=== PATIENT | male | born 1960 | race American Indian/Alaskan Native ===

== ENCOUNTER 2021-09-16 00:14 | Observation (INO) | payer BC, MEDICARE, OTHER ==
[2021-09-16] MEDS ORDERED: fentaNYL 100 MCG/2 ML INJ IV ONE (00:42)
[2021-09-16] MEDS ORDERED: ASPIRIN 325 MG TAB PO ONE (00:42)
[2021-09-16] MEDS ORDERED: NITROGLYCERIN 2% OINT 1 GM TP ONE (00:42)
[2021-09-16] MEDS ORDERED: ONDANSETRON 4 MG/2 ML INJ IV ONE (00:42)
[2021-09-16] MEDS ORDERED: cloNIDine 0.1 MG TAB PO ONE (00:47)
--- NOTE | 2021-09-16 00:47 | Emergency Department Report ---
HPI - General Chief Complaint: Chest Pain Time Seen by Provider: 09/16/21 00:23 - HPI HPI: Room 24 Patient is a 61-year-old male present with chief complaint of chest pain. Patient states symptoms began this evening with substernal chest pressure felt as though someone sitting on his chest. Patient also complained of bilateral upper extremity numbness with the pain. Patient denies shortness of breath, nausea/vomiting or diaphoresis. Patient denies cough or fever. Patient denies any recent flights or long car trips. Patient currently gives his chest pain score 5/10. Patient states he has had a stress test within the past 5 years but does not recall the results. Patient states he is never had a cardiac catheterization ED Past Medical Hx - Past Medical History Hx Hypertension: Yes Hx CVA: Yes (2003) Hx Diabetes: Yes Hx Renal Disease: Yes - Surgical History Additional Surgical History: Skin graft as a child - Family History Family history: no significant - Social History Smoking Status: Current Every Day Smoker (1/2 pack/day) Substance Use Type: None (Denies illicit drug use) - Medications Home Medications: Home Medications Medication Instructions Recorded Confirmed Last Taken Type HYDROcodone/APAP 10-325 [[place] 1 each PO Q8HR PRN #30 tablet 08/29/13 Unknown Rx 10/325] Insulin NPH Hum/Reg Insulin Hm 20 units SQ QAM 08/29/13 08/29/13 Unknown History [Humulin 70-30 Vial] Insulin NPH Hum/Reg Insulin Hm 20 units SQ QPM 08/29/13 08/29/13 Unknown History [Humulin 70-30 Vial] ED Review of Systems ROS: Stated complaint: CHEST PAIN Other details as noted in HPI Constitutional: denies: diaphoresis, fever Eyes: denies: eye pain ENT: denies: throat pain Respiratory: denies: shortness of breath Cardiovascular: chest pain Endocrine: no symptoms reported Gastrointestinal: denies: nausea, vomiting Genitourinary: denies: dysuria Musculoskeletal: denies: back pain Neurological: denies: headache Physical Exam - Physical Exam Vital Signs: Vital Signs 09/16/21 00:35 Temperature 98.7 F Pulse Rate 92 H Respiratory 16 Rate Blood Pressure 170/100 [Right] O2 Sat by Pulse 95 Oximetry Physical Exam: GENERAL: The patient is well-developed well-nourished male lying on stretcher not appearing to be in acute distress. [] HEENT: Normocephalic. Atraumatic. Extraocular motions are intact. Patient has moist mucous membranes. NECK: Supple. Trachea midline CHEST/LUNGS: Clear to auscultation. There is no respiratory distress noted. HEART/CARDIOVASCULAR: Regular. There is no tachycardia. There is no gallop rub or murmur. ABDOMEN: Abdomen is soft, nontender. Patient has normal bowel sounds. There is no abdominal distention. SKIN: There is no rash. There is no edema. There is no diaphoresis. NEURO: The patient is awake, alert, and oriented. The patient is cooperative. The patient has no focal neurologic deficits. The patient has normal speech. GCS 15 MUSCULOSKELETAL:There is no evidence of acute injury. ED Course Vital Signs 09/16/21 00:35 Temperature 98.7 F Pulse Rate 92 H Respiratory 16 Rate Blood Pressure 170/100 [Right] O2 Sat by Pulse 95 Oximetry ED Medical Decision Making - Lab Data Result diagrams: 09/16/21 01:17 09/16/21 01:17 Laboratory Tests 09/16/21 09/16/21 09/16/21 01:17 01:17 01:17 WBC 10.0 RBC 4.32 Hgb 12.8 Hct 37.3 MCV 86 MCH 30 MCHC 34 RDW 14.1 Plt Count 224 Lymph % (Auto) 9.1 L [place] % (Auto) 6.5 Eos % (Auto) 3.6 Baso % (Auto) 0.8 Lymph # (Auto) 0.9 L [place] # (Auto) 0.7 Eos # (Auto) 0.4 Baso # (Auto) 0.1 Seg Neutrophils % 80.0 H Seg Neutrophils # 8.0 H PT 13.9 INR 0.94 VBG pH Sodium 138 Potassium 3.4 L Chloride 97.8 L Carbon Dioxide 29 Anion Gap 15 BUN 19 Creatinine 1.3 Estimated GFR > 60 BUN/Creatinine Ratio 15 Glucose 305 H Calcium 9.1 Total Creatine Kinase 408 H CK-MB (CK-2) 5.2 H CK-MB (CK-2) Rel Index 1.2 Troponin T < 0.010 09/16/21 01:17 WBC RBC Hgb Hct MCV MCH MCHC RDW Plt Count Lymph % (Auto) [place] % (Auto) Eos % (Auto) Baso % (Auto) Lymph # (Auto) [place] # (Auto) Eos # (Auto) Baso # (Auto) Seg Neutrophils % Seg Neutrophils # PT INR VBG pH 7.405 Sodium Potassium Chloride Carbon Dioxide Anion Gap BUN Creatinine Estimated GFR BUN/Creatinine Ratio Glucose Calcium Total Creatine Kinase CK-MB (CK-2) CK-MB (CK-2) Rel Index Troponin T - EKG Data -: EKG Interpreted by Me EKG shows normal: sinus rhythm Rate: normal - EKG Data When compared to previous EKG there are: previous EKG unavailable Interpretation: nonspecific ST-T wave fredy - Radiology Data Radiology results: report reviewed (Chest x-ray), image reviewed (Chest x-ray) interpreted by me: Chest [id number]. No pneumothorax. No definite focal infiltrate [facility] [address] [place] [address] XRay Report Signed Patient: KATHLEEN LATHAM MR#: [id number] : 1960 Acct:[id number] Age/Sex: 61 / M ADM Date: 09/16/21 Loc: ED Attending Dr: Ordering Physician: JALEN PORTILLO MD Date of Service: 09/16/21 Procedure(s): XR chest 1V ap Accession Number(s): [id number] cc: JALEN PORTILLO MD Fluoro Time In Minutes: XR chest 1V ap INDICATION / CLINICAL INFORMATION: chest pain. COMPARISON: None available. FINDINGS: SUPPORT DEVICES: None. HEART /PULMONARY VASCULATURE: No significant abnormality. LUNGS / PLEURA: Lung volumes are diminished. There is bronchovascular crowding with streaky bibasilar pulmonary opacities. No sizable pleural effusion. No pneumothorax. ADDITIONAL FINDINGS: No significant additional findings. IMPRESSION: Streaky bibasilar pulmonary opacities, favored to reflect atelectasis in the setting of low lung volumes. Signer Name: Keanu Valerio MD Signed: 09/16/2021 1:28 AM Workstation Name: [id number] Transcribed By: MIGUEL ANGEL Dictated By: KEANU VALERIO MD Electronically Authenticated By: KEANU VALERIO MD Signed Date/Time: 09/16/21127 DD/ 5 TD/TT: - Differential Diagnosis ACS, pericarditis, GERD Critical care attestation.: If time is entered above; I have spent that time in minutes in the direct care of this critically ill patient, excluding procedure time. ED Disposition Clinical Impression: Chest pain Disposition: 09 ADMITTED INPATIENT Is pt being admited?: Yes Does the pt Need Aspirin: Yes Condition: Fair Time of Disposition: 02:51 (Care transferred to hospitalist (Dr. Mccray)) Heart Score - HEART Score History: Moderately suspicious EKG: Non-specific Age: 45-65 Risk factors: > 3 risk factors or hx of atherosclerotic disease Troponin: < normal limit HEART Score: 5 - EKG Read Time Time EKG Completed: 00:32 (3) EKG Read Time: 00:35
[2021-09-16 01:30] LABS: Basophils # (Auto) 0.1 K/mm3 (0.0-0.1); Basophils % (Auto) 0.8 % (0.0-1.8); Eosinophils # (Auto) 0.4 K/mm3 (0.0-0.4); Eosinophils % (Auto) 3.6 % (0.0-4.3); Hematocrit 37.3 % (35.5-45.6); Hemoglobin 12.8 gm/dl (11.8-15.2); Lymphocytes # (Auto) 0.9 K/mm3 (1.2-5.4); Lymphocytes % (Auto) 9.1 % (13.4-35.0); Mean Corpuscular HGB Conc 34 % (32-34); Mean Corpuscular Volume 86 fl (84-94); Monocytes # (Auto) 0.7 K/mm3 (0.0-0.8); Monocytes % (Auto) 6.5 % (0.0-7.3); Platelet Count 224 K/mm3 (140-440); Red Blood Count 4.32 M/mm3 (3.65-5.03); Red Cell Distribution Width 14.1 % (13.2-15.2)
--- NOTE | 2021-09-16 01:32 | XRay Report ---
XR chest 1V ap INDICATION / CLINICAL INFORMATION: chest pain. COMPARISON: None available. FINDINGS: SUPPORT DEVICES: None. HEART /PULMONARY VASCULATURE: No significant abnormality. LUNGS / PLEURA: Lung volumes are diminished. There is bronchovascular crowding with streaky bibasilar pulmonary opacities. No sizable pleural effusion. No pneumothorax. ADDITIONAL FINDINGS: No significant additional findings. IMPRESSION: Streaky bibasilar pulmonary opacities, favored to reflect atelectasis in the setting of low lung volu mes. Signer Name: Graeme Valerio MD Signed: 09/16/2021 1:28 AM Workstation Name: [id number]
[2021-09-16 01:38] LABS: INR 0.94 (0.87-1.13)
[2021-09-16 01:54] LABS: Creatine Kinase MB 5.2 ng/mL (0.0-4.0)
[2021-09-16 01:55] LABS: BUN/Creatinine Ratio 15; Blood Urea Nitrogen 19 mg/dL (9-20); Calcium 9.1 mg/dL (8.4-10.2); Hemolysis Index 12
--- NOTE | 2021-09-16 11:47 | Emergency Department Report ---
Blank Doc - Documentation Documentation: Nurse brought to my attention that patient is in the ED awaiting disposition. As per medical record review Dr. Cecy kitchenit patient to Dr Mccray at 2:51 AM however there are no admission orders placed. I discussed this with Dr. Hightower current admitting hospitalist. Initial troponin negative. Requests repeat troponin and he will come to the ED to assess and dispo patient.
[2021-09-16] MEDS ORDERED: ONDANSETRON 4 MG/2 ML INJ IV PRN (11:59)
[2021-09-16] MEDS ORDERED: HYDROmorphone 0.5 MG/0.5 ML INJ IV PRN (11:59)
[2021-09-16] MEDS ORDERED: MORPHINE 2 MG/1 ML INJ IV PRN (11:59)
[2021-09-16] MEDS ORDERED: oxyCODONE /ACETAMINOPHEN 5-325MG TAB PO PRN (11:59)
[2021-09-16] MEDS ORDERED: METOCLOPRAMIDE 10 MG/2 ML INJ IV PRN (11:59)
[2021-09-16] MEDS ORDERED: ACETAMINOPHEN 325 MG TAB PO PRN (11:59)
[2021-09-16] MEDS: HEPARIN 5,000 UNIT/1 ML VIAL SUB-Q SCH ×2 (12:38→21:12)
[2021-09-16] MEDS ORDERED: SODIUM CHLORIDE 0.45% 1000 ML 1,000 ML IV SCH (13:00)
[2021-09-16] MEDS: INSULIN LISPRO 100 UNIT/ML SUB-Q SCH (21:12)
--- NOTE | 2021-09-17 06:33 | History and Physical Report ---
History of Present Illness Date of examination: 09/16/21 Date of admission: 09/16/21 11:59 Chief complaint: Chest pain since yesterday evening History of present illness: 61-year-old -[place] male with history of hypertension and diabetes with previous medical appointment comes in for substernal chest pain since yesterday evening. Chest pain is intermittent. Retrosternal. Radiating to both arms. No shortness of breath no diaphoresis. No nausea or vomiting. No recent long trips. Chest pain score of 5 on a scale of 1-10. Patient had a stress test about 5 years ago and states that there was negative. Never had a cardiac cath. No fever or chills. Patient is COVID vaccinated. No exacerbating or relieving factors. - Past Medical History --Hypertension: Yes --CVA: Yes (2003) --Diabetes: Yes --Renal Disease: Yes - Surgical History --Additional Surgical History: Skin graft as a child - Family History --Family history: no significant - Social History --Smoking Status: Current Every Day Smoker (1/2 pack/day) --Substance Use Type: None (Denies illicit drug use) - Medications --Home Medications: Home Medications Medication Instructions Recorded Confirmed Last Taken Type HYDROcodone/APAP 10-325 [[place] 1 each PO Q8HR PRN #30 tablet 08/29/13 Unknown Rx 10/325] Insulin NPH Hum/Reg Insulin Hm 20 units SQ QAM 08/29/13 08/29/13 Unknown History [Humulin 70-30 Vial] Insulin NPH Hum/Reg Insulin Hm 20 units SQ QPM 08/29/13 08/29/13 Unknown History [Humulin 70-30 Vial] -Review of Systems ROS: Constitutional no weight loss or weight gain no fever or chills HEENT no sore throat no post nasal drip no diplopia Neck no neck stiffness no lymph gland enlargement Chest and lungs no shortness of breath cough or wheezing CVS chest pain since yesterday-intermittent in nature GI no nausea no vomiting no diarrhea Genitourinary system no dysuria no flank pain Musculoskeletal system no muscle pains no joint pains [employer] no syncope no seizures Skin no rash no itching Psychiatric no depression no homicidal or suicidal tendencies Hematologic no lymphedema or bruising Endocrine no polydipsia no polyuria no cold intolerance no heat intolerance Medications and Allergies Allergies Allergy/AdvReac Type Severity Reaction Status Date / Time No Known Allergies Allergy Unverified 08/29/13 00:26 Home Medications Medication Instructions Recorded Confirmed Last Taken Type Insulin Detemir [Levemir Flextouch] 30 unit SQ DAILY 09/16/21 09/16/21 2 Days Ago History ~09/14/21 Insulin Lispro [Humalog] 5 units SQ QDAC PRN 09/16/21 09/16/21 Unknown History Promethazine [Phenergan] 25 mg PO Q6HR PRN 09/16/21 09/16/21 Unknown History amLODIPine [Norvasc] 5 mg PO QHS 09/16/21 09/16/21 2 Days Ago History ~09/14/21 hydroCHLOROthiazide 25 mg PO DAILY 09/16/21 09/16/21 2 Days Ago History [Hydrochlorothiazide] ~09/14/21 Active Meds: Active Medications Acetaminophen (Acetaminophen 325 Mg Tab) 650 mg PO Q4H PRN PRN Reason: Pain MILD(1-3)/Fever >100.5/CID Heparin Sodium (Porcine) (Heparin 5,000 Unit/1 Ml Vial) 5,000 unit SUB-Q Q12HR STEFAN Last Admin: 09/16/21 21:12 Dose: 5,000 unit Hydromorphone HCl (Hydromorphone 0.5 Mg/0.5 Ml Inj) 0.5 mg IV Q3H PRN PRN Reason: Pain , Severe (7-10) Last Admin: 09/16/21 16:58 Dose: 0.5 mg Sodium Chloride (Nacl 0.45% 1000 Ml) 1,000 mls @ 75 mls/hr IV DIRECT STEFAN Last Admin: 09/16/21 16:45 Dose: 75 mls/hr Insulin Human Lispro (Insulin Lispro 100 Unit/Ml) 0 unit SUB-Q ACHS [facility]; Protocol Last Admin: 09/16/21 21:12 Dose: 6 unit Metoclopramide HCl (Metoclopramide 10 Mg/2 Ml Inj) 10 mg IV Q6H PRN PRN Reason: Nausea And Vomiting Morphine Sulfate (Morphine 2 Mg/1 Ml Inj) 2 mg IV Q4H PRN PRN Reason: Pain, Moderate (4-6) Ondansetron HCl (Ondansetron 4 Mg/2 Ml Inj) 4 mg IV Q8H PRN PRN Reason: Nausea And Vomiting Oxycodone/Acetaminophen (Oxycodone /Acetaminophen 5-325mg Tab) 1 tab PO Q6H PRN PRN Reason: Pain, Moderate (4-6) Sodium Chloride (Sodium Chloride 0.9% 10 Ml Flush Syringe) 10 ml IV BID STEFAN Last Admin: 09/16/21 21:13 Dose: 10 ml Sodium Chloride (Sodium Chloride 0.9% 10 Ml Flush Syringe) 10 ml IV PRN PRN PRN Reason: LINE FLUSH Last Admin: 09/16/21 16:59 Dose: 10 ml Exam - Constitutional Vitals: Temp Pulse Resp BP Pulse Ox 98.2 F 96 H 18 138/81 98 09/17/21 03:45 09/17/21 03:45 09/17/21 03:45 09/17/21 03:45 09/17/21 03:45 General appearance: Present: no acute distress, well-nourished - EENT Eyes: Present: PERRL ENT: hearing intact, clear oral mucosa - Neck Neck: Present: supple, normal ROM - Respiratory Respiratory effort: normal Respiratory: bilateral: CTA - Cardiovascular Heart rate: 78 Rhythm: regular Heart Sounds: Present: S1 & S2. Absent: rub, click - Extremities Extremities: no ischemia, pulses intact, pulses symmetrical, No edema Peripheral Pulses: within normal limits - Abdominal General gastrointestinal: Present: soft, non-tender, non-distended, normal bowel sounds Male genitourinary: Present: deferred, normal - Rectal Rectal Exam: deferred - Integumentary Integumentary: Present: clear, warm, dry - Musculoskeletal Musculoskeletal: gait normal, strength equal bilaterally - Psychiatric Psychiatric: appropriate mood/affect, intact judgment & insight - Neurologic Neurologic: CNII-XII intact, moves all extremities - Allied Health Allied health notes reviewed: nursing, case management HEART Score - HEART Score EKG: Non-specific Age: 45-65 Risk factors: > 3 risk factors or hx of atherosclerotic disease Troponin: Troponin T < 0.010 ng/mL (0.00-0.029) 09/16/21 23:14 Troponin: < normal limit - Critical Actions Critical Actions: 4-6 pts:12-16.6% risk of adverse cardiac event. Should be admitted Results - Labs CBC & Chem 7: 09/16/21 01:17 09/16/21 01:17 Labs: Laboratory Last Values WBC 10.0 K/mm3 (4.5-11.0) 09/16/21 01:17 RBC 4.32 M/mm3 (3.65-5.03) 09/16/21 01:17 Hgb 12.8 gm/dl (11.8-15.2) 09/16/21 01:17 Hct 37.3 % (35.5-45.6) 09/16/21 01:17 MCV 86 fl (84-94) 09/16/21 01:17 MCH 30 pg (28-32) 09/16/21 01:17 MCHC 34 % (32-34) 09/16/21 01:17 RDW 14.1 % (13.2-15.2) 09/16/21 01:17 Plt Count 224 K/mm3 (140-440) 09/16/21 01:17 Lymph % (Auto) 9.1 % (13.4-35.0) L 09/16/21 01:17 [place] % (Auto) 6.5 % (0.0-7.3) 09/16/21 01:17 Eos % (Auto) 3.6 % (0.0-4.3) 09/16/21 01:17 Baso % (Auto) 0.8 % (0.0-1.8) 09/16/21 01:17 Lymph # (Auto) 0.9 K/mm3 (1.2-5.4) L 09/16/21 01:17 [place] # (Auto) 0.7 K/mm3 (0.0-0.8) 09/16/21 01:17 Eos # (Auto) 0.4 K/mm3 (0.0-0.4) 09/16/21 01:17 Baso # (Auto) 0.1 K/mm3 (0.0-0.1) 09/16/21 01:17 Seg Neutrophils % 80.0 % (40.0-70.0) H 09/16/21 01:17 Seg Neutrophils # 8.0 K/mm3 (1.8-7.7) H 09/16/21 01:17 PT 13.9 Sec. (12.2-14.9) 09/16/21 01:17 INR 0.94 (0.87-1.13) 09/16/21 01:17 VBG pH 7.405 (7.320-7.420) 09/16/21 01:17 Sodium 138 mmol/L (137-145) 09/16/21 01:17 Potassium 3.4 mmol/L (3.6-5.0) L 09/16/21 01:17 Chloride 97.8 mmol/L (98-107) L 09/16/21 01:17 Carbon Dioxide 29 mmol/L (22-30) 09/16/21 01:17 Anion Gap 15 mmol/L 09/16/21 01:17 BUN 19 mg/dL (9-20) 09/16/21 01:17 Creatinine 1.3 mg/dL (0.8-1.3) 09/16/21 01:17 Estimated GFR > 60 ml/min 09/16/21 01:17 BUN/Creatinine Ratio 15 % 09/16/21 01:17 Glucose 305 mg/dL (75-100) H 09/16/21 01:17 POC Glucose 288 mg/dL (70-105) H 09/16/21 19:40 Calcium 9.1 mg/dL (8.4-10.2) 09/16/21 01:17 Total Creatine Kinase 408 units/L (55-170) H 09/16/21 01:17 CK-MB (CK-2) 5.2 ng/mL (0.0-4.0) H 09/16/21 01:17 CK-MB (CK-2) Rel Index 1.2 (0-4) 09/16/21 01:17 Troponin T < 0.010 ng/mL (0.00-0.029) 09/16/21 23:14 Cardiac Enzymes 09/16/21 09/16/21 09/16/21 Range/Units 11:51 19:00 23:14 Troponin T < 0.010 < 0.010 < 0.010 (0.00-0.029) ng/mL - Imaging and Cardiology EKG: report reviewed (Mrs. Patton no acute ST-T wave changes) Chest x-ray: report reviewed (No acute findings) Yeh/IV: Voiding Method Urinal Assessment and Plan Advance Directives: Yes (Full code) VTE prophylaxis?: Chemical Plan of care discussed with patient/family: Yes - Patient Problems (1) Acute coronary syndrome Current Visit: Yes Status: Acute Plan to address problem: No chest wall tenderness. Patient has risk factors of tension and insulin-dependent diabetes. Serial troponins. Lexiscan in the morning. Possible discharge tomorrow if Lexiscan is negative. Differential diagnosis of costochondritis and GERD ruled out. (2) Hypertension Current Visit: Yes Status: Chronic Qualifiers: Hypertension type: primary hypertension Qualified Code(s): I10 - Essential (primary) hypertension Plan to address problem: Continue antihypertensives and adjust medications. (3) IDDM (insulin dependent diabetes mellitus) Current Visit: Yes Status: Chronic Plan to address problem: Continue home insulin and coverage. Check hemoglobin A1c. (4) Hypokalemia Current Visit: Yes Status: Acute Plan to address problem: Supplemented. (5) DVT prophylaxis Current Visit: Yes Status: Acute Plan to address problem: On heparin and GI prophylaxis (6) Advance care planning Current Visit: Yes Status: Acute Plan to address problem: Disease education collected, care plan discussed, patient is discussed and prognosis discussed. Patient acknowledges understanding with care plan. +30 minutes.
[2021-09-17 06:35] LABS: Basophils % (Auto) 0.5 % (0.0-1.8); Eosinophils # (Auto) 0.3 K/mm3 (0.0-0.4); Eosinophils % (Auto) 4.1 % (0.0-4.3); Hematocrit 37.5 % (35.5-45.6); Hemoglobin 12.7 gm/dl (11.8-15.2); Lymphocytes # (Auto) 1.9 K/mm3 (1.2-5.4); Lymphocytes % (Auto) 26.2 % (13.4-35.0); Mean Corpuscular HGB Conc 34 % (32-34); Mean Corpuscular Volume 86 fl (84-94); Monocytes # (Auto) 0.8 K/mm3 (0.0-0.8); Monocytes % (Auto) 11.5 % (0.0-7.3); Platelet Count 217 K/mm3 (140-440); Red Blood Count 4.36 M/mm3 (3.65-5.03); Red Cell Distribution Width 14.1 % (13.2-15.2)
[2021-09-17] MEDS ORDERED: POTASSIUM CHLORIDE ER 20 MEQ TAB PO NR (06:39)
[2021-09-17 06:56] LABS: BUN/Creatinine Ratio 14; Blood Urea Nitrogen 14 mg/dL (9-20); Hemolysis Index 2
[2021-09-17] MEDS: INSULIN LISPRO 100 UNIT/ML SUB-Q SCH ×2 (08:00→12:00)
[2021-09-17] MEDS ORDERED: REGADENOSON 0.4 MG/5 ML INJ IV ONE (08:06)
[2021-09-17] MEDS: HEPARIN 5,000 UNIT/1 ML VIAL SUB-Q SCH (10:52)
--- NOTE | 2021-09-17 10:58 | Electrocardiograph Report ---
[facility] Test Date: 2021-09-16 Test Time: 00:32:27 Pat Name: KATHLEEN LATHAM Department: Room: A486 Gender: M Work Checker: maureen : 1960 Requested By: JALEN PORTILLO Order Number: [id number] Reading MD: Reagan Armstrong Measurements Intervals [place] Rate: 77 P: 70 UT: 165 QRS: 64 QRSD: 94 T: 68 QT: 402 QTc: 451 Interpretive Statements Sinus rhythm Atrial premature complexes No previous ECG available for comparison Electronically Signed On 09-17-2021 10:57:53 EDT by Reagan Armstrong
--- NOTE | 2021-09-17 11:39 | Nuclear Medicine Report ---
APPROVED REPORT Exam: Nuclear Stress Test Indication: Chest pain Patient Location: [address] [place] [place] [address] Room #: A475 Ht: 6 ft 1 in Wt: 172 lbs BSA: 2.02 m2 HR: 82 bpmBP: 156/85 mmHgBMI: 22.69 Rhythm: Sinus Rhythm Stress Test Details Stress Test: Pharmacologic stress testing performed using 0.4 mg of regadenoson per 5 mL given IV over 10 seconds. Reason for pharmacologic stress test: physical limitation. HR Resting HR: 80 bpm Max HR Achieved: 118 bpm Max Heart Rate (APMHR): 161 bpm Target HR (85% APMHR): 136 bpm % of APMHR: 73 Recovery HR: 103 bpm HR response to stress: Normal HR response to stress BP Resting BP: 117/57 mmHg Max BP: 156/88 mmHg Recovery BP: 98/65 mmHg BP response to stress: Normal blood pressure response to stress. ECG Resting ECG: Sinus Rhythm,wnl. Stress ECG: Sinus Tachycardia ST Change: None Arrhythmia: APC's Recovery ECG: Sinus Rhythm Recovery ST Change: None Recovery Arrhythmia: APC Clinical Reason for Termination: Completed protocol Stress Symptoms: None NM EXAM: Myocardial Perfusion REST/STRESS Imaging Protocol: Rest Tc-99m/Stress Tc-99m 1 day Resting Data Rest SPECT myocardial perfusion imaging was performed in supine position 45 minutes following the intravenous injection of 10 mCi of Tc-99m Myoview. Time of rest injection: 0715 Pharmacologic Stress Pharmacologic stress test was performed by injecting Regadenoson 0.4 mg IV push followed by the intravenous injection of 28 mCi of Tc-99m Myoview. Time of stress injection: 09:58:11 Gated Stress SPECT was performed 30 minutes after stress injection. The images were gated to evaluate regional wall motion and calculate left ventricular ejection fraction. Study Data TID = 1.18. Perfusion Wall Motion LVEF post vasodilation 57%. Nuclear Conclusion ECG Findings: negative for ischemia Clinical Findings: negative for ischemia Nuclear Findings: negative for ischemia Exercise Capacity: not assessed Left Ventricular Function: normal Risk Study: low Normal study. No scintigraphic evidence for myocardial ischemia or scar.
[2021-09-17] MEDS ORDERED: POTASSIUM CHLORIDE ER 20 MEQ TAB PO ONE (16:30)
[2021-09-17 16:35] VITALS: BP 154/83
--- NOTE | 2021-09-17 16:36 | Discharge Summary ---
Providers - Providers Date of Admission: 09/16/21 11:59 Date of discharge: 09/17/21 Attending physician: BRYAN SHIELDS Primary care physician: BACKGROUND INVESTIGATOR Hospitalization Condition: Fair Hospital course: History of present illness: 61-year-old -Citizen Of [place] male with history of hypertension and diabetes with previous medical appointment comes in for substernal chest pain since yesterday evening. Chest pain is intermittent. Retrosternal. Radiating to both arms. No shortness of breath no diaphoresis. No nausea or vomiting. No recent long trips. Chest pain score of 5 on a scale of 1-10. Patient had a stress test about 5 years ago and states that there was negative. Never had a cardiac cath. No fever or chills. Patient is COVID vaccinated. No exacerbating or relieving factors. Assessment and Plan Advance Directives: Yes (Full code) VTE prophylaxis?: Chemical Plan of care discussed with patient/family: Yes - Patient Problems (1) Acute coronary syndrome Current Visit: Yes Status: Acute Plan to address problem: Lexiscan was negative ejection fraction was normal No thrombus or clot. No ischemia. (2) Hypertension Current Visit: Yes Status: Chronic Qualifiers: Hypertension type: primary hypertension Qualified Code(s): I10 - Essential (primary) hypertension Plan to address problem: Continue antihypertensives and adjust medications. (3) IDDM (insulin dependent diabetes mellitus) Current Visit: Yes Status: Chronic Plan to address problem: Continue home insulin and coverage. Check hemoglobin A1c. (4) Hypokalemia Current Visit: Yes Status: Acute Plan to address problem: Supplemented. (5) DVT prophylaxis Current Visit: Yes Status: Acute Plan to address problem: On heparin and GI prophylaxis (6) Advance care planning Current Visit: Yes Status: Acute Plan to address problem: Disease education collected, care plan discussed, patient is discussed and prognosis discussed. Patient acknowledges understanding with care plan. +30 minutes. Disposition: 01 HOME / SELF CARE / HOMELESS Final Discharge Diagnosis (Prints w/discharge instructions): Acute coronary syndrome. Hypokalemia. Hypertension. T2DM - Discharge Diagnoses (1) Acute coronary syndrome Status: Acute (2) Hypertension Status: Chronic Qualifiers: Hypertension type: primary hypertension Qualified Code(s): I10 - Essential (primary) hypertension (3) IDDM (insulin dependent diabetes mellitus) Status: Chronic (4) Hypokalemia Status: Acute (5) DVT prophylaxis Status: Acute (6) Advance care planning Status: Acute Core Measure Documentation - Palliative Care Palliative Care/ Comfort Measures: Not Applicable - Core Measures Any of the following diagnoses?: none Exam - Constitutional Vitals: Temp Pulse Resp BP Pulse Ox 97.9 F 85 18 154/83 98 09/17/21 16:22 09/17/21 16:22 09/17/21 16:22 09/17/21 16:22 09/17/21 16:22 General appearance: Present: no acute distress, well-nourished - EENT Eyes: Present: PERRL ENT: hearing intact, clear oral mucosa - Neck Neck: Present: supple, normal ROM - Respiratory Respiratory effort: normal Respiratory: bilateral: CTA - Cardiovascular Heart rate: 78 Rhythm: regular Heart Sounds: Present: S1 & S2. Absent: rub, click - Extremities Extremities: pulses symmetrical, No edema Peripheral Pulses: within normal limits - Abdominal General gastrointestinal: Present: soft, non-tender, non-distended, normal bowel sounds Male genitourinary: Present: normal - Integumentary Integumentary: Present: clear, warm, dry - Musculoskeletal Musculoskeletal: gait normal, strength equal bilaterally - Psychiatric Psychiatric: appropriate mood/affect, intact judgment & insight - Neurologic Neurologic: CNII-XII intact, moves all extremities - Allied Health Allied health notes reviewed: nursing, case management Plan Activity: no restrictions Diet: low salt, diabetic Follow up with: PRIMARY CARE, [Primary Care Provider] - 3-5 Days
== END 2021-09-17 17:54 | disposition home or self-care (01) ==
LOC: ED 00:14 → 4A 11:59 → INTOOBSV 11:59 → 4A 13:11
PROVIDERS: ADMIT Internal Medicine; ATTEND Internal Medicine
DX: I24.9 Acute ischemic heart disease, unspecified (principal); I10 Essential (primary) hypertension; E11.9 Type 2 diabetes mellitus without complications; E87.6 Hypokalemia; N28.9 Disorder of kidney and ureter, unspecified; F17.200 Nicotine dependence, unspecified, uncomplicated; Z79.4 Long term (current) use of insulin; Z86.73 Personal history of transient ischemic attack (TIA), and cerebral infarction without residual deficits; Z79.899 Other long term (current) drug therapy; Z98.890 Other specified postprocedural states
CPT/HCPCS: 36415; 71045; 78452; 80048; 82550; 82553; 82805; 82962; 84484; 85025; 85610; 93005; 93017; 96361; 96372; 96374; 96375; 99285; A9502; G0378; J1170; J1644; J2405; J2785; J3010; J7030; J3490; Q9967; J1815